=== PATIENT | female | born 1990 | race Caucasian/White ===

== ENCOUNTER 2020-06-01 07:43 | Outpatient (CLI) | payer BC ==
--- NOTE | 2020-06-01 09:30 | ULT ---
LIMITED LEFT BREAST ULTRASOUND: Date: 06/01/2020 HISTORY: 29-year-old female with left breast mass. FINDINGS: Sonographic evaluation of the region of palpable concern at the 2 and 3 o'clock positions of the left breast demonstrates a 5.0 mm cyst at the 3 o'clock position and another 6.0 mm cyst at the 2 o'clock position. IMPRESSION: Small cysts at the site of palpable concern in the left breast. POS: OFF
== END 2020-06-01 07:44 | disposition home or self-care (01) ==
LOC: BICULT 07:43
PROVIDERS: ATTEND Family Medicine
DX: N63.20 Unspecified lump in the left breast, unspecified quadrant (principal); N60.02 Solitary cyst of left breast

== ENCOUNTER 2020-12-11 13:07 | Emergency (ER) | payer BC ==
[2020-12-11 13:41] LABS: #Basophils 0.1 thou/uL (0.0-0.2); #Lymphocytes 1.8 thou/uL (1.20-3.40); #Neutrophils 6.7 thou/uL (1.40-6.50); %Eosinophils 0.4 % (0.0-10.0); %Lymphocytes 18.9 % (21.0-51.0); %Monocytes 10.4 % (0.0-10.0); %Neutrophils 69.2 % (42.0-75.0); Hemoglobin 14.5 g/dL (12.0-16.0); Mean Corpuscular HGB CONC 33.6 g/dL (32.0-36.0); Mean Corpuscular Hemoglobin 31.5 pg (27.0-31.0); Mean Corpuscular Volume 93.7 fL (78.0-98.0); Mean Platelet Volume 7.1 fL (7.4-10.4); Platelet Count 282 thou/uL (130-400); RBC Distribution Width 12.7 % (11.5-14.5); White Blood Cell (WBC) Count 9.7 thou/uL (4.8-10.8)
[2020-12-11] MEDS ORDERED: Lorazepam 2 MG/ML VIAL ONE (13:55)
[2020-12-11 14:02] LABS: ALT (SGPT) 13 U/L (8-55); AST (SGOT) 16 U/L (5-34); Acetaminophen Less than 6.0 mcg/mL (10.0-30.0); Albumin 4.4 g/dL (3.5-5.0); Alcohol Less than 10 mg/dL (Less than 10); Alkaline Phosphatase 64 U/L (40-110); Anion Gap 15 mmol/L (10-20); BUN (Urea Nitrogen) 21 mg/dL (7.0-18.7); Bilirubin, Total 1.2 mg/dL (0.2-1.2); CK (CPK) 167 U/L (29-168); Calc. Creatinine Clearance 0 mL/min (70-130); Calcium 9.7 mg/dL (7.8-10.44); Carbon Dioxide 24 mmol/L (22-29); Chloride 102 mmol/L (98-107); Glucose 91 mg/dL (70-105); Protein, Total 7.4 g/dL (6.0-8.3); Salicylate Less than 8.0 mg/dL (15.0-30.0); Sodium 137 mmol/L (136-145)
[2020-12-11 15:09] LABS: Bacteria/HPF 4+ HPF (None Seen); Bilirubin Negative (Negative); Blood, Urine Negative (Negative); Clarity Turbid (Clear); Glucose, Urine (Dipstick) Normal (Negative); Ketone, Urine 80 mg/dL (Negative); Leukocyte 75 Leu/uL (Negative); Nitrite Negative (Negative); Protein, Urine (Dipstick) 20 mg/dL (Neg-Trace); RBC/HPF 0-3 HPF (0-3); Specific Gravity, Urine 1.027 (1.002-1.036); Urobilinogen Normal mg/dL (Less than 2)
[2020-12-11] MEDS ORDERED: Ibuprofen 800 MG TAB ONE (15:39)
[2020-12-11 15:41] LABS: Amphetamine Detected (NotDetected); Barbiturates Screen Not Detected (NotDetected); Benzodiazepine Screen Detected (NotDetected); Cocaine Metabolite Screen Not Detected (NotDetected); Medtox Reader # READER 1; Methadone Not Detected (NotDetected); Methamphetamine Not Detected (NotDetected); Opiate Screen Not Detected (NotDetected); Oxycodone Screen Not Detected (NotDetected); Phencyclidine (PCP) Not Detected (NotDetected); THC/Cannabinoid Screen Detected (NotDetected); Tricyclic Screen Not Detected (NotDetected)
[2020-12-11 15:42] LABS: Medtox Control Line Valid? VALID (VALID)
[2020-12-11] MEDS ORDERED: Nitrofurantoin Monohyd/M-Cryst 100 MG CAP PO SCH (15:45)
[2020-12-11 16:00] LABS: Pregnancy Test - Urine (BHCG) Negative (Negative); Pregu Control Background? CLEAR/WHITE (CLR/WHITE); Pregu Control Bar Appear? YES (CONTROL BAR); Specific Gravity 1.027 (1.002-1.036)
[2020-12-11 20:11] LABS: SARS-CoV-2 NAA Rapid Test Not Detected (NotDetected)
== END 2020-12-11 22:35 ==
LOC: ERS 13:07
DX: R45.851 Suicidal ideations (principal); S42.031A Displaced fracture of lateral end of right clavicle, initial encounter for closed fracture; N39.0 Urinary tract infection, site not specified; R44.3 Hallucinations, unspecified; Z20.822 Contact with and (suspected) exposure to COVID-19; Z79.899 Other long term (current) drug therapy; X58.XXXA Exposure to other specified factors, initial encounter
CPT/HCPCS: 36415; 71045; 80053; 80306; 80307; 81003; 81015; 81025; 82550; 85025; 87086; 93005; 96372; J2060; U0002; U0005

== ENCOUNTER 2025-05-21 09:09 | Outpatient (CLI) | payer BC | END 2025-05-21 09:10 | disposition home or self-care (01) | LOC: BICRAD 09:09 | PROVIDERS: ATTEND Nurse Practitioner Family | DX: M89.8X1 Other specified disorders of bone, shoulder (principal); M95.8 Other specified acquired deformities of musculoskeletal system ==

== ENCOUNTER 2025-05-22 18:34 | Emergency (ER) | payer BC ==
[2025-05-22] MEDS ORDERED: Orphenadrine Citrate 60 MG/2 ML VIAL ONE (23:01)
[2025-05-23] MEDS ORDERED: HYDROcodone/Acetaminophen 5/325 mg Tablet ONE (00:03)
== END 2025-05-23 00:08 | disposition home or self-care (01) ==
LOC: ERS 18:34
DX: M25.511 Pain in right shoulder (principal)
CPT/HCPCS: 96372; 99282; J2360